=== PATIENT | female | born 1990 | race Caucasian/White ===

== ENCOUNTER 2018-01-25 20:09 | Emergency (ER) | payer BC ==
[~2018-01-25 20:09] MED LIST: MOTRIN 800800 MG/TAB PO; NORCO 325 MG-51 TAB PO; PRENATAL1 TA1 PO; PROMETHAZINE12.5 M5 PO; PROMETRIUM200 M1 PO; ZYRTEC 10MG10 MG PO
[2018-01-25 20:14] VITALS: BP 132/74; TEMP 97.8
[2018-01-25] MEDS ORDERED: ADDERALL XR20 MG PO (20:30)
[2018-01-25 20:44] LABS: BASO % 0.5 % (0.0-2.0); EOS # 0.4 (0.0-0.7); EOS % 6.8 % (0-4.0); GRAN # 3.5 (1.4-6.5); GRAN % 55.9 % (42.2-75.2); LYMPH # 1.9 (1.2-3.4); LYMPH % 29.8 % (20.0-51.0); MEAN CELL VOLUME 86 fl (80.0-100.0); MEAN CORPUSCULAR HEMOGLOBIN 30 pg (27.0-31.0); MEAN CORPUSCULAR HGB CONC 35 g/dl (33.0-37.0); MEAN PLATELET VOLUME 10.5 fl (7.4-10.4); MONO # 0.4 (0.1-0.6); MONO % 6.8 % (1.7-9.3); PLATELET COUNT 181 K/mm3 (130-400); RED BLOOD COUNT 3.98 M/mm3 (4.10-5.30); REDCELL DISTRIBUTION WIDTH-CV 11.4 % (11.5-14.5)
[2018-01-25 20:47] LABS: HEMATOCRIT 34.4 % (37.0-47.0)
[2018-01-25 20:53] LABS: ALBUMIN 4.1 gm/dL (3.5-5.0); BILIRUBIN,TOTAL 0.4 mg/dL (0.0-1.0); C-REACTIVE PROTEIN 0.5 mg/dL (0.0-0.9); CALCIUM 9.3 mg/dL (8.4-10.2); CREATININE, serum 0.66 mg/dL (0.52-1.25); POTASSIUM 3.8 mmol/L (3.4-5.0); TOTAL PROTEIN 7.2 gm/dL (6.4-8.2)
[2018-01-25 21:17] LABS: COLLECTION METHOD CLEAN CATCH
[2018-01-25 21:23] LABS: MUCOUS Present /lpf; PH 7 (5-8); URINE APPEARANCE Hazy; URINE BACTERIA None Seen /hpf; URINE BILIRUBIN Negative (NEGATIVE); URINE BLOOD Negative (NEGATIVE); URINE COLOR Yellow; URINE GLUCOSE Negative (NEGATIVE); URINE KETONE Trace (NEGATIVE); URINE LEUKOCYTE ESTERASE 2+ (NEGATIVE); URINE NITRATE Negative (NEGATIVE); URINE PROTEIN(semi-quant) Negative (NEGATIVE); URINE RBC 0-2 /hpf; URINE UROBILINOGEN Negative (NEGATIVE)
[2018-01-25 22:00] VITALS: PULSE 74
== END 2018-01-25 22:05 | disposition home or self-care (01) ==
LOC: COL.ER 20:09
PROVIDERS: Family Medicine
DX: N83.201 Unspecified ovarian cyst, right side (principal)
CPT/HCPCS: J1170; J2405; J7030; Q9967

== ENCOUNTER 2018-03-05 20:09 | Emergency (ER) | payer BC ==
[~2018-03-05] VITALS: Ht 162.6 cm; Wt 59.1 kg
[~2018-03-05 20:09] MED LIST changes: +ADDERALL XR20 MG PO
[2018-03-05 20:11] VITALS: BP 121/72; TEMP 98.1
[2018-03-05 21:42] VITALS: PULSE 71
== END 2018-03-05 21:42 | disposition home or self-care (01) ==
LOC: COL.ER 20:09
DX: S93.601A Unspecified sprain of right foot, initial encounter (principal); S70.12XA Contusion of left thigh, initial encounter; F90.9 Attention-deficit hyperactivity disorder, unspecified type; Z87.891 Personal history of nicotine dependence; W18.39XA Other fall on same level, initial encounter; Y92.89 Other specified places as the place of occurrence of the external cause

== ENCOUNTER 2018-12-07 18:11 | Outpatient (CLI) | payer BC, OTHER ==
[~2018-12-07] VITALS: Ht 162.6 cm; Wt 74.1 kg
[2018-12-07 18:25] VITALS: BP 119/73; PULSE 76; TEMP 98.7
--- NOTE | 2018-12-07 18:25 | NUR ---
182 G2L1 35 WEEK GEST TO LR4 WITH C/O FEELING HOT AND DISORIENTED AT WORK TODAY. HAD B/P TAKEN AT WORK AND IT WAS 138/78. STATES HAS ALSO HAD A HEADACHE ALL DAY. EFM ON. B/P 119/73. STATES HAS A HEADACHE NOW. NO EPIGASTRIC PAIN, STATES ANKLES ARE SWOLLEN BUT ONLY SLIGHTLY. NO C/O UNUSUAL VISIAL DISTURBANCES FOR HER.
[2018-12-07 18:35] VITALS: BP 117/70; PULSE 72
[2018-12-07] MEDS ORDERED: PRENATA1 CTB PO (18:35)
--- NOTE | 2018-12-07 18:35 | NUR ---
183 NO CONTRACTIONS C/O BY PT AND NONE SEEN ON EFM. NO SVE AT THIS TIME.
[2018-12-07 18:36] VITALS: BP 119/73; PULSE 76; TEMP 98.7
[2018-12-07 18:40] VITALS: BP 114/63; PULSE 70
--- NOTE | 2018-12-07 18:40 | NUR ---
1840 STATES IS FEELING BETTER THAN AT WORK. STILL HAS A HEADACHE AND LAST TOOK TYLENOL FOR IT AROUND 1500. [address] DR SWEENEY NOTIFIED AND REPORT GIVEN. ORDER RECEIVED TO DISMISS TO HOME 1909 HOME WITH INSTRUCTIONS.
== END 2018-12-07 19:10 | disposition home or self-care (01) ==
LOC: LDRO 18:11
DX: O13.3 Gestational [pregnancy-induced] hypertension without significant proteinuria, third trimester (principal); O99.89 Other specified diseases and conditions complicating pregnancy, childbirth and the puerperium; R41.0 Disorientation, unspecified; N95.1 Menopausal and female climacteric states; Z3A.35 35 weeks gestation of pregnancy

== ENCOUNTER 2018-12-27 08:03 | Outpatient (CLI) | payer BC ==
[~2018-12-27] VITALS: Ht 162.6 cm; Wt 78.2 kg
[~2018-12-27 08:03] MED LIST changes: +PRENATA1 CTB PO
[2018-12-27 08:11] VITALS: BP 124/74; PULSE 74; TEMP 98.3
[2018-12-27 08:15] VITALS: BP 124/74; PULSE 74
[2018-12-27] MEDS ORDERED: TYLENOL PM EXTR1 TA1 PO (08:19)
--- NOTE | 2018-12-27 08:26 | NUR ---
Patient ambulatory to unit accompanied by spouse. patient states she has been feeling contractions since they woke her up around 0200. Patient also states her underwear were wet so unsure if her water broke. 37.5 week gestation, G2L1. Patient in gown and resting in bed. FHR and contraction monitors placed and explained. Patient denies any vaginal bleeding and states baby has been active. SVE by Yadi Rod RN at 0815 , amniotest negative, no leaking of fluid noted on glove with exam. Assessment completed. Dr. Otoole at nurses station and psychologist industrial organizational, orders received.
[2018-12-27 09:23] VITALS: PULSE 78
--- NOTE | 2018-12-27 09:24 | NUR ---
0925 NO CHANGES NOTEDWITH SVE, AND CONTRACTIONS LESS INTENSE. ALL DISCHARGE INSTRUCTIONS GIVEN WITH VERBAL UNDERSTANDING. HOME WITH
== END 2018-12-27 09:25 | disposition home or self-care (01) ==
LOC: LDRO 08:03
DX: O62.9 Abnormality of forces of labor, unspecified (principal); Z3A.37 37 weeks gestation of pregnancy

== ENCOUNTER 2019-01-03 17:32 | Outpatient (CLI) | payer BC ==
[~2019-01-03] VITALS: Ht 162.6 cm; Wt 78.2 kg
[~2019-01-03 17:32] MED LIST changes: +TYLENOL PM EXTR1 TA1 PO
--- NOTE | 2019-01-03 17:35 | NUR ---
1735-G2L1 [address] VALDEZ AMBULATORY TO LR 4 WITH COMPLAINTS OF CONTRACTIONS SINCE NOON. RECENTLY IN THE LAST HOUR CONTRACTIONS BECAME REGULAR EVERY 5MIN. DENIES LOF OR VAGINAL BLEEDING. REPORTS GOOD MOVEMENT. ASSISTED INTO GOWN AND PLACED ON EFM. 175-SVE BY REGINA, 1-/-3. REPOSITONED WL AND UPDATED ON PLAN OF CARE. ASSESSMENT COMPLETE. 1824-PATIENT OFF EFM TO AMBULATE. REPORT GIVEN TO CARMELITA FERNANDEZ WHO ASSUMES CARE OF PATIENT AT THIS TIME.
[2019-01-03 17:48] VITALS: BP 124/77; PULSE 66; TEMP 98.2
[2019-01-03 18:00] VITALS: BP 124/77; PULSE 66; TEMP 98.2
--- NOTE | 2019-01-03 19:00 | NUR ---
CYNDIE unchanged from admission. Dr. Correa notified, see physician notification. Monitors removed for discharge.
--- NOTE | 2019-01-03 19:10 | NUR ---
Discharge instructions reviewed with patient and patient educated on return precautions. Pt and spouse verbalize understanding. All questions answered. Pt seen ambulating off unit with spouse.
== END 2019-01-03 19:10 | disposition home or self-care (01) ==
LOC: LDRO 17:32
DX: O62.9 Abnormality of forces of labor, unspecified (principal); Z3A.38 38 weeks gestation of pregnancy

== ENCOUNTER 2019-01-06 11:45 | Inpatient (IN) | payer BC ==
[~2019-01-06] VITALS: Ht 162.6 cm; Wt 78.2 kg
[2019-01-06] VITALS (26 sets, daily range): BP systolic 100–148; BP diastolic 59–98; PULSE 58–110; TEMP 98.1–98.5
--- NOTE | 2019-01-06 12:43 | NUR ---
1243: Patient off monitor to void and ambulate. 1317: Off monitor to void. 1320: Dr. Stewart at bedside and Sono done at this time, assessing patient and FHR strip. 1325: IV started in right hand per [facility] student nurse, blood drawn/to lab, and LR infusing. Patient requesting epidural and Brea Chaudhary BUSINESS TECHNOLOGY ANALYST notified. 1332: Dr. Stewart at bedside discussing plan of care. 1335: SVE per physician /-3 and AROM at this time, clear fluid noted. 1400: Patient sat up for placement of epidural and Nasim BUSINESS TECHNOLOGY ANALYST at bedside for procedure. FHR difficult to trace at this time due to maternal position. 1407: Single shot given and patient tolerates well. 1409: Test dose given and patient tolerates well. Patient repositioned and becoming comfortable with epidural.
[2019-01-06 13:43] LABS: BASO # 0.1 (0.0-0.2); BASO % 0.4 % (0.0-2.0); EOS # 0.5 (0.0-0.7); EOS % 4.4 % (0-4.0); GRAN # 7.3 (1.4-6.5); GRAN % 64.5 % (42.2-75.2); LYMPH # 2.6 (1.2-3.4); MEAN CELL VOLUME 88 fl (80.0-100.0); MEAN CORPUSCULAR HEMOGLOBIN 29 pg (27.0-31.0); MEAN CORPUSCULAR HGB CONC 33 g/dl (33.0-37.0); MEAN PLATELET VOLUME 12.9 fl (7.4-10.4); MONO # 0.8 (0.1-0.6); MONO % 6.9 % (1.7-9.3); PLATELET COUNT 177 K/mm3 (130-400); REDCELL DISTRIBUTION WIDTH-CV 12.9 % (11.5-14.5)
[2019-01-06 13:48] LABS: HEMATOCRIT 36.8 % (37.0-47.0)
--- NOTE | 2019-01-06 17:00 | NUR ---
Patient becoming uncomfortable and pushes epidural button, Nasim RIVERA at nurses station and notified. Epidural dosed per Nasim RATTLING MACHINE TENDER and patient left lateral 1720: Epidural dosed per Nasim RATTLING MACHINE TENDER and patient wedged right
--- NOTE | 2019-01-06 17:25 | NUR ---
1726: Patient states feeling "fuzzy and weak", blood pressure 100/59 1730: Ephedrine 10 mg IV given, 1730: Dr. Montoya at bedside and SVE per physician complete and orders to set up and begin pusing. 1734: Blood pressure 104/71 1735: FHR baseline 110-115bmp and decreasing to 80-90bpm for approx. [address] Montoya begins to push with patient. LR continues to bolus 1736: Blood pressure 121/59 patient feeling better. Patient continues to push with contractions, and FHR showing variable and late decelerations. 1747: Spontaneous vaginal delivery of head followed by body. Infant bulb syringed and onto patient abdomen and Sharona MAE assumes care of infant. Cord clamped and cut by Dr. Montoya and cord blood obtained. 1751: Manual extraction of placenta and pitocin bolus started per protocol. Fundal massage done/firm/bleeding WNL. Dr. Montoya begins to repair 2nd degree laceration. 1757: Patient repositioned and ice pack to perineum. Plan of care discussed.
[2019-01-07 02:19] VITALS: BP 108/69; PULSE 69; TEMP 98.1
[2019-01-07 07:40] VITALS: BP 128/69; PULSE 74; TEMP 98.4
[2019-01-07] MEDS ORDERED: NORCO 325 MG-51 TAB PO (11:12)
[2019-01-07] MEDS ORDERED: IBU800 M1 PO (11:12)
[2019-01-07 12:00] VITALS: BP 119/82; PULSE 71; TEMP 98.4
[2019-01-07 17:00] VITALS: BP 123/65; PULSE 70; TEMP 98.4
[2019-01-07 18:40] VITALS: BP 119/66; PULSE 73; TEMP 98.2
[2019-01-08 08:00] VITALS: BP 137/77; PULSE 80; TEMP 98.2
== END 2019-01-08 14:15 | disposition home or self-care (01) | DRG 806 ==
LOC: LDRO 11:45 → LDR 13:07 → OB 22:28
PROVIDERS: ADMIT Obstetrics & Gynecology
PROC: 10E0XZZ Delivery of Products of Conception, External Approach (ICD-10-PCS; principal; 2019-01-06)
PROC: 0KQM0ZZ Repair Perineum Muscle, Open Approach (ICD-10-PCS; 2019-01-06)
PROC: 10D17Z9 Manual Extraction of Products of Conception, Retained, Via Natural or Artificial Opening (ICD-10-PCS; 2019-01-06)
DX: O70.1 Second degree perineal laceration during delivery (principal); O72.1 Other immediate postpartum hemorrhage; Z37.0 Single live birth; Z3A.39 39 weeks gestation of pregnancy; O99.344 Other mental disorders complicating childbirth; F41.9 Anxiety disorder, unspecified; O99.02 Anemia complicating childbirth; D64.9 Anemia, unspecified; J45.909 Unspecified asthma, uncomplicated; H35.52 Pigmentary retinal dystrophy
CPT/HCPCS: J0690; J2590; J2795; J7120

== ENCOUNTER 2019-01-17 13:46 | Emergency (ER) | payer BC ==
[~2019-01-17] VITALS: Ht 162.6 cm; Wt 68.2 kg
[~2019-01-17 13:46] MED LIST changes: +IBU800 M1 PO
[2019-01-17 13:50] VITALS: TEMP 97.1
[2019-01-17 14:19] LABS: BASO # 0.1 (0.0-0.2); BASO % 0.7 % (0.0-2.0); EOS # 0.5 (0.0-0.7); EOS % 6.6 % (0-4.0); GRAN # 4.9 (1.4-6.5); GRAN % 64.2 % (42.2-75.2); HEMOGLOBIN 12.3 g/dl (12.5-16.0); LYMPH # 1.7 (1.2-3.4); LYMPH % 22.3 % (20.0-51.0); MEAN CELL VOLUME 89 fl (80.0-100.0); MEAN CORPUSCULAR HEMOGLOBIN 29 pg (27.0-31.0); MEAN CORPUSCULAR HGB CONC 32 g/dl (33.0-37.0); MEAN PLATELET VOLUME 10.5 fl (7.4-10.4); MONO # 0.4 (0.1-0.6); MONO % 5.7 % (1.7-9.3); PLATELET COUNT 282 K/mm3 (130-400); RED BLOOD COUNT 4.27 M/mm3 (4.10-5.30)
[2019-01-17 14:31] LABS: ALBUMIN 4.1 gm/dL (3.5-5.0); BILIRUBIN,TOTAL 0.3 mg/dL (0.0-1.0); C-REACTIVE PROTEIN 6.1 mg/dL (0.0-0.9); CALCIUM 9.5 mg/dL (8.4-10.2); CREATININE, serum 0.6 (0.52-1.25); POTASSIUM 3.9 mmol/L (3.4-5.0); TOTAL PROTEIN 7.6 gm/dL (6.4-8.2)
[2019-01-17 14:31] LABS: COLLECTION METHOD CLEAN CATCH
[2019-01-17 14:40] LABS: MUCOUS Present /lpf; PH 6 (5-8); SQUAMOUS EPITHELIAL 0-2 /hpf; URINE APPEARANCE Clear; URINE BACTERIA None Seen /hpf; URINE BILIRUBIN Negative (NEGATIVE); URINE BLOOD 1+ (NEGATIVE); URINE COLOR Yellow; URINE GLUCOSE Negative (NEGATIVE); URINE KETONE Negative (NEGATIVE); URINE LEUKOCYTE ESTERASE Negative (NEGATIVE); URINE NITRATE Negative (NEGATIVE); URINE PROTEIN(semi-quant) Negative (NEGATIVE); URINE RBC 0-2 /hpf; URINE UROBILINOGEN Negative (NEGATIVE)
[2019-01-17] MEDS ORDERED: NORCO 325 MG-51 TAB PO (16:55)
[2019-01-17 17:19] VITALS: BP 112/71; PULSE 58
== END 2019-01-17 17:24 | disposition home or self-care (01) ==
LOC: COL.ER 13:46
PROVIDERS: Physician Assistant
DX: R10.32 Left lower quadrant pain (principal); F41.9 Anxiety disorder, unspecified; J45.909 Unspecified asthma, uncomplicated; Z90.49 Acquired absence of other specified parts of digestive tract
CPT/HCPCS: J1100; J1200; J1885; J2405; J7030; Q9967